=== PATIENT | male | born 1950 | race Hispanic/Latino ===

== ENCOUNTER 2016-11-28 06:10 | Inpatient (IN) | payer MEDICARE ==
[2016-11-28] MEDS ORDERED: Sodium Chloride 0.9% 1,000 ML IV ONE ×2 (06:45→08:00)
--- NOTE | 2016-11-28 06:59 | C.PDOC ---
History Of Present Illness Pt was sent in by his PMD for weight loss and possible pneumonia. Time Seen by Provider: 11/28/16 06:35 Chief Complaint (Nursing): Shortness Of Breath History Per: Patient Onset/Duration Of Symptoms: Days Current Symptoms Are (Timing): Still Present Current Respiratory Medications: None Severity: Moderate Reports Recently: Treated By A Physician Additional History Per: Prior Records Past Medical History Reviewed: Historical Data, Nursing Documentation, Vital Signs Vital Signs: Last Vital Signs Temp 97.4 F L 11/28/16 06:32 Pulse 166 H 11/28/16 06:32 Resp 22 11/28/16 06:51 BP 95/70 L 11/28/16 06:32 Pulse Ox 99 11/28/16 07:00 - Medical History PMH: Asthma Surgical History: No Surg Hx Family History: States: Unknown Family Hx - Social History Hx Tobacco Use: Yes Hx Alcohol Use: No Hx Substance Use: No - Immunization History Hx Tetanus Toxoid Vaccination: No Hx Influenza Vaccination: No Hx Pneumococcal Vaccination: No Review Of Systems Except As Marked, All Systems Reviewed And Found Negative. Constitutional: Negative for: Fever Cardiovascular: Negative for: Chest Pain Respiratory: Negative for: Hemoptysis Gastrointestinal: Negative for: Vomiting, Abdominal Pain Genitourinary: Negative for: Dysuria Musculoskeletal: Negative for: Neck Pain, Back Pain, Leg Pain Skin: Negative for: Rash Neurological: Negative for: Weakness Physical Exam - Physical Exam Appears: In Acute Distress, Chronically Ill Skin: Normal Color, Warm, Dry Head: Atraumatic, Normacephalic Eye(s): bilateral: PERRL, EOMI Oral Mucosa: Dry Neck: Normal ROM, Supple Cardiovascular: Rhythm Irregular (tachycardia) Respiratory: Normal Breath Sounds, No Accessory Muscle Use Gastrointestinal/Abdominal: Soft, No Tenderness Back: No CVA Tenderness Extremity: Normal ROM, No Pedal Edema, No Calf Tenderness Neurological/Psych: Oriented x3, Normal Motor, Normal Sensation ED Course And Treatment ECG: Interpreted By Me, Viewed By Me ECG Rhythm: Atrial Fibrillation (?), Nonspecific Changes ECG Interpretation: Abnormal Rate From EC Pulse Ox Interpretation: Abnormal Interpretation Of Abnormal: Hypoxia on RA. ED EKG Interpretation - Interpreted by ED Physician Interpreted by ED Physician: Yes - TIME Time: 06:42 - Type Type: 12 lead EKG Comparison: Com.w/previous EKG - Rhythm Rhythm: Normal sinus - Rate BPM: 99 - Impression Impression:: Non-specific Disposition - Disposition Disposition Time: 07:00 Condition: GUARDED - Clinical Impression Clinical Impression: Tachycardia Physician Patient Turnover Patient Signed Over To: Harjeet Mills Handoff Comments: to f/up labs and CXR and dispo pt.
[2016-11-28 07:19] LABS: BASO % 0.2 % (0.0-2.0); EOS % 0.2 % (0.0-4.0); INR 1.5; LYMPH # 1.2 K/uL (1.0-4.3); LYMPH % 8.4 % (20.0-40.0); MEAN CELL VOLUME 86.8 fL (80.0-94.0); MEAN CORPUSCULAR HEMOGLOBIN 28.6 pg (27.0-31.0); MEAN PLATELET VOLUME 8.3 fL (7.2-11.7); MONO # 0.8 K/uL (0.0-0.8); MONO % 5.6 % (0.0-10.0); PLATELET COUNT 490 K/uL (130-400); WHITE BLOOD COUNT 14.8 K/uL (4.8-10.8)
[2016-11-28] MEDS ORDERED: Azithromycin 500 MG in Sodium Chloride 0.9% 250 ML IVPB STA (07:58)
[2016-11-28] MEDS ORDERED: Azithromycin 500mg/250ML NS 500 MG/250 ML BAG IVPB ONE (08:09)
[2016-11-28 08:26] LABS: FREE T4 3.24 ng/dL (0.78-2.19)
[2016-11-28 08:34] LABS: CALCIUM 12.1 mg/dl (8.6-10.4); MAGNESIUM 1.6 mg/dL (1.6-2.3)
[2016-11-28 08:40] LABS: THYROID STIMULATING HORMONE < 0.02 mIU/L (0.46-4.68)
[2016-11-28 08:47] LABS: TOTAL CELLS COUNTED 100
[2016-11-28 08:48] LABS: ALKALINE PHOSPHATASE 114 U/L (38-126); ALT/SGPT 23 U/L (21-72); AST/SGOT 30 U/L (17-59); BASOPHIL 1 % (0-2); BILIRUBIN,TOTAL 1.4 mg/dL (0.2-1.3); BLOOD UREA NITROGEN 16 mg/dL (9-20); CARBON DIOXIDE 28 mmol/L (22-30); CHLORIDE 88 mmol/L (98-107); GFR AFRICAN-AMERICAN > 60; GLUCOSE,RANDOM 163 mg/dL (75-110); NEUTROPHIL 89 % (50-75); POTASSIUM 3.3 mmol/L (3.6-5.2); SODIUM 131 mmol/L (132-148); TOTAL PROTEIN 8.9 g/dL (6.3-8.3)
[2016-11-28 08:49] LABS: ALB/GLOB RATIO 0.9 (1.0-2.1)
[2016-11-28 08:50] LABS: LARGE PLATELETS PRESENT
[2016-11-28] MEDS ORDERED: Iodixanol 320 mg/ml 150 ml Bottle IV ONE (08:55)
--- NOTE | 2016-11-28 09:36 | RAD ---
PROCEDURE: CHEST RADIOGRAPH, 1 VIEW Technique: Single view portable semi erect @ 06:50. HISTORY: SOB, tachycardia COMPARISON: None available. FINDINGS: LUNGS: Large right lower lobe infiltrate consistent with acute pneumonia. PLEURA: No pneumothorax or pleural fluid seen. CARDIOVASCULAR: Normal. OSSEOUS STRUCTURES: No significant abnormalities. VISUALIZED UPPER ABDOMEN: Normal. OTHER FINDINGS: None. IMPRESSION: Right lower lobe pneumonia. Please note: No preliminary report/ innterpretation of this examination provided by emergency department personnel.
--- NOTE | 2016-11-28 11:14 | CT ---
CTA chest PE protocol Indication: Shortness of breath and elevated D-dimer Technique: Contiguous axial images were obtained through the chest with intravenous contrast enhancement. Sagittal and coronal reconstructions were generated and reviewed. This CT exam was performed using 1 or more of the falling dose reduction techniques: Automated exposure control, adjustment of the MAA and/or kV according to patient size, and/or use of iterative reconstruction technique. IV Contrast: 100 mL Visipaque Radiation dose (DLP): 348.90 MGy-cm. Comparison: Chest x-ray performed 11/28/16 Findings: Visualized portions of the inferior thyroid gland appear unremarkable. The mediastinal and hilar vascular structures appear within normal limits. The heart appears within normal limits of size. Ascending aortic aneurysm measures approximately 4.3 cm in AP dimension. Extensive emphysematous changes. Extensive mass appears consistent with malignant neoplasm arising from the right lower lobe and invading the mediastinum/right heart border, left atrium and markedly attenuated the right lower lobe pulmonary artery branches as well as invading the right pulmonary vein and branches. Right lower lobe bronchus cut off. No pleural effusion. No pneumothorax. No large central or segmental pulmonary embolus evident. Limited visualized portions of the upper abdomen appear grossly unremarkable. Right posterior 8th rib demonstrates evidence of fracture/ destructive changes presumably due to adjacent neoplasm. Degenerative changes of the spine. Impression: Extensive emphysematous changes. Extensive mass appears consistent with malignant neoplasm arising from the right lower lobe and invading the mediastinum/right heart border, left atrium and markedly attenuated the right lower lobe pulmonary artery branches as well as invading the right pulmonary vein and branches. Right lower lobe bronchus cut off. Right posterior 8th rib demonstrates evidence of fracture/ destructive changes presumably due to adjacent neoplasm.
[2016-11-28] MEDS: Sodium Chloride 0.45% 1,000 ML IV SCH (13:27)
[2016-11-28] MEDS ORDERED: Potassium Chloride 10 mEq ER Tab PO ONE (13:27)
[2016-11-28] MEDS ORDERED: Sodium Chloride 0.45% 1,000 ML IV ONE (13:27)
[2016-11-28] MEDS: Potassium Chloride 10 mEq ER Tab PO SCH (13:27)
--- NOTE | 2016-11-28 15:15 | CP.PCM.CON ---
<Nguyen Mills - Last Filed: 11/28/16 15:43> History of Present Illness - History of Present Illness History of Present Illness: Pulm consult note for Dr. Nicolas: Pulm was consulted for a lung mass found on CT. Patient is a 66 year old male with no past medical history. He reports that he "was sent by primary for pneumonia" and took and bus to get to the ED from his primary care's office today. He reports that he does not any any medical problems and has not been told he has anything wrong with him lungs except pneumonia. He report a 25 pound weight loss within the last 3 months. He states that he has a good appetite. Report normal stool light brown in color. Has never had an endocopy or colonoscopy. He has a long history of smoking but denies cough, chest pain, or shortness of breath. PMHx - denies Meds - men's multivitamin Surg - none Allergies - NKDA Famhx - unknown, no fam hx of cancer Social - heavy smoker 10 cigarettes daily for 40+ years, denies alcohol or drug use. 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 Vanessa Austin Review of Systems - Constitutional Constitutional: absent: Chills, Fever - Cardiovascular Cardiovascular: absent: Chest Pain, Chest Pain at Rest, Palpitations - Respiratory Respiratory: absent: Cough, Dyspnea, Dyspnea on Exertion, Wheezing, Excessive Mucous Production - Gastrointestinal Gastrointestinal: absent: Abdominal Pain, Nausea, Vomiting - Genitourinary Genitourinary: absent: Change in Urinary Stream, Difficulty Urinating Past Patient History - Past Social History Smoking Status: Heavy Smoker > 10 Cigarettes Daily - PULMONARY Hx Asthma: Yes - PSYCHIATRIC Hx Substance Use: No - SURGICAL HISTORY Hx Surgeries: No - ANESTHESIA Hx Anesthesia: No Meds Allergies/Adverse Reactions: Allergies Allergy/AdvReac Type Severity Reaction Status Date / Time No Known Allergies Allergy Verified 11/28/16 06:40 - Medications Medications: Current Medications Ceftriaxone Sodium 1 gm/ (Sodium Chloride) 100 mls @ 100 mls/hr IVPB DAILY [facility] Azithromycin 500 mg/ Sodium (Chloride) 250 mls @ 250 mls/hr IVPB DAILY [facility] Sodium Chloride (Sodium Chloride 0.45%) 1,000 mls @ 60 mls/hr IV .[id number] [facility] Last Admin: 11/28/16 13:27 Dose: 60 mls/hr Potassium Chloride (Klor-Con 10) 10 meq PO DAILY@0800 [facility] Last Admin: 11/28/16 13:27 Dose: 10 meq Physical Exam - Constitutional Appears: Non-toxic, No Acute Distress, Cachectic - Head Exam Head Exam: ATRAUMATIC, NORMAL INSPECTION - ENT Exam ENT Exam: Mucous Membranes Moist - Respiratory Exam Respiratory Exam: Decreased Breath Sounds, Wheezes, NORMAL BREATHING PATTERN. absent: Accessory Muscle Use, Clear to Auscultation Bilateral, Respiratory Distress Additional comments: Barrel chested - Cardiovascular Exam Cardiovascular Exam: Irregular Rhythm, +S1, +S2 - GI/Abdominal Exam GI & Abdominal Exam: Normal Bowel Sounds, Soft. absent: Distended, Firm, Guarding, Tenderness - Extremities Exam Additional comments: digital clubbing not cyanotic - Neurological Exam Neurological exam: Alert, Oriented x3 - Psychiatric Exam Psychiatric exam: Normal Affect, Normal Mood - Skin Skin Exam: Dry, Intact, Normal Color, Warm Results - Vital Signs Recent Vital Signs: Last Vital Signs Temp 97.8 F 11/28/16 14:55 Pulse 78 11/28/16 14:55 Resp 20 11/28/16 14:55 BP 114/72 11/28/16 14:55 Pulse Ox 98 11/28/16 14:55 - Labs Result Diagrams: 11/28/16 06:54 11/28/16 06:54 Labs: Laboratory Results - last 24 hr 11/28/16 11/28/16 11/28/16 06:54 06:54 06:54 WBC 14.8 H RBC 4.15 L Hgb 11.9 L Hct 36.0 MCV 86.8 MCH 28.6 MCHC 33.0 RDW 19.0 H Plt Count 490 H MPV 8.3 Neut % (Auto) 85.6 H Lymph % (Auto) 8.4 L [place] % (Auto) 5.6 Eos % (Auto) 0.2 Baso % (Auto) 0.2 Neut # 12.6 H Lymph # 1.2 [place] # 0.8 Eos # 0.0 Baso # 0.0 Neutrophils % (Manual) 89 H Lymphocytes % (Manual) 8 L Monocytes % (Manual) 2 Basophils % (Manual) 1 Platelet Estimate Slightly increased H Large Platelets Present Poikilocytosis (manual Slight Anisocytosis (manual) Slight PT 16.5 H INR 1.5 APTT 30 D-Dimer, Quantitative 722 H Sodium 131 L Potassium 3.3 L Chloride 88 L Carbon Dioxide 28 Anion Gap 18 BUN 16 Creatinine 0.7 L Est GFR ( Amer) > 60 Est GFR (Non-Af Amer) > 60 Random Glucose 163 H Lactic Acid Calcium 12.1 H Magnesium 1.6 Total Bilirubin 1.4 H AST 30 ALT 23 Alkaline Phosphatase 114 Troponin I < 0.0120 NT-Pro-B Natriuret Pep 1720 H Total Protein 8.9 H Albumin 4.1 Globulin 4.8 H Albumin/Globulin Ratio 0.9 L Free T4 TSH 3rd Generation 11/28/16 11/28/16 06:54 10:05 WBC RBC Hgb Hct MCV MCH MCHC RDW Plt Count MPV Neut % (Auto) Lymph % (Auto) [place] % (Auto) Eos % (Auto) Baso % (Auto) Neut # Lymph # [place] # Eos # Baso # Neutrophils % (Manual) Lymphocytes % (Manual) Monocytes % (Manual) Basophils % (Manual) Platelet Estimate Large Platelets Poikilocytosis (manual Anisocytosis (manual) PT INR APTT D-Dimer, Quantitative Sodium Potassium Chloride Carbon Dioxide Anion Gap BUN Creatinine Est GFR ( Amer) Est GFR (Non-Af Amer) Random Glucose Lactic Acid 1.2 Calcium Magnesium Total Bilirubin AST ALT Alkaline Phosphatase Troponin I NT-Pro-B Natriuret Pep Total Protein Albumin Globulin Albumin/Globulin Ratio Free T4 3.24 H TSH 3rd Generation < 0.02 L Assessment & Plan (1) Lung mass Status: Acute Comment: Suggest CT guided biopsy for lung mass eval. Heme/onc consult (2) COPD (chronic obstructive pulmonary disease) Status: Acute Comment: CT - suggesting of extensive emphysema. Will start Advai 250/50 and Spirivia. Azithromycin and Ceftriazone for pneumonia coverage. No need for steroids as the patient does not appear to be having an acute exacerbation. <Ramez Nicolas - Last Filed: 11/29/16 15:00> Meds - Medications Medications: Current Medications Albuterol/Ipratropium (Duoneb 3 Mg/0.5 Mg (3 Ml) Ud) 3 ml INH RQ6 [facility] Ceftriaxone Sodium 1 gm/ (Sodium Chloride) 100 mls @ 100 mls/hr IVPB DAILY [facility] Azithromycin 500 mg/ Sodium (Chloride) 250 mls @ 250 mls/hr IVPB DAILY [facility] Sodium Chloride (Sodium Chloride 0.45%) 1,000 mls @ 60 mls/hr IV .[id number] [facility] Last Admin: 11/28/16 13:27 Dose: 60 mls/hr Potassium Chloride (Klor-Con 10) 10 meq PO DAILY@0800 [facility] Last Admin: 11/28/16 13:27 Dose: 10 meq Fluticasone/Salmeterol (Advair Diskus 250/50) 1 puff INH RQ12 [facility] Tiotropium [place] (Spiriva) 18 mcg INH RQ24 [facility] Results - Vital Signs Recent Vital Signs: Last Vital Signs Temp 98.0 F 11/28/16 16:10 Pulse 81 11/28/16 16:27 Resp 20 11/28/16 16:10 BP 128/73 11/28/16 16:10 Pulse Ox 92 L 11/28/16 16:10 - Labs Result Diagrams: 11/29/16 08:22 11/29/16 08:22 Labs: Laboratory Results - last 24 hr 11/28/16 11/28/16 11/28/16 06:54 06:54 06:54 WBC 14.8 H RBC 4.15 L Hgb 11.9 L Hct 36.0 MCV 86.8 MCH 28.6 MCHC 33.0 RDW 19.0 H Plt Count 490 H MPV 8.3 Neut % (Auto) 85.6 H Lymph % (Auto) 8.4 L [place] % (Auto) 5.6 Eos % (Auto) 0.2 Baso % (Auto) 0.2 Neut # 12.6 H Lymph # 1.2 [place] # 0.8 Eos # 0.0 Baso # 0.0 Neutrophils % (Manual) 89 H Lymphocytes % (Manual) 8 L Monocytes % (Manual) 2 Basophils % (Manual) 1 Platelet Estimate Slightly increased H Large Platelets Present Poikilocytosis (manual Slight Anisocytosis (manual) Slight PT 16.5 H INR 1.5 APTT 30 D-Dimer, Quantitative 722 H Sodium 131 L Potassium 3.3 L Chloride 88 L Carbon Dioxide 28 Anion Gap 18 BUN 16 Creatinine 0.7 L Est GFR ( Amer) > 60 Est GFR (Non-Af Amer) > 60 Random Glucose 163 H Lactic Acid Calcium 12.1 H Magnesium 1.6 Total Bilirubin 1.4 H AST 30 ALT 23 Alkaline Phosphatase 114 Troponin I < 0.0120 NT-Pro-B Natriuret Pep 1720 H Total Protein 8.9 H Albumin 4.1 Globulin 4.8 H Albumin/Globulin Ratio 0.9 L Free T4 TSH 3rd Generation 11/28/16 11/28/16 06:54 10:05 WBC RBC Hgb Hct MCV MCH MCHC RDW Plt Count MPV Neut % (Auto) Lymph % (Auto) [place] % (Auto) Eos % (Auto) Baso % (Auto) Neut # Lymph # [place] # Eos # Baso # Neutrophils % (Manual) Lymphocytes % (Manual) Monocytes % (Manual) Basophils % (Manual) Platelet Estimate Large Platelets Poikilocytosis (manual Anisocytosis (manual) PT INR APTT D-Dimer, Quantitative Sodium Potassium Chloride Carbon Dioxide Anion Gap BUN Creatinine Est GFR ( Amer) Est GFR (Non-Af Amer) Random Glucose Lactic Acid 1.2 Calcium Magnesium Total Bilirubin AST ALT Alkaline Phosphatase Troponin I NT-Pro-B Natriuret Pep Total Protein Albumin Globulin Albumin/Globulin Ratio Free T4 3.24 H TSH 3rd Generation < 0.02 L Attending/Attestation - Attestation I have personally seen and examined this patient.: Yes I have fully participated in the care of the patient.: Yes I have reviewed all pertinent clinical information: Yes Notes (Text): 11/29/16 15:00 Continue treatment for COPD Biopsy of lung mass Patient in denial
--- NOTE | 2016-11-28 17:24 | CARD ---
APPROVED REPORT EKG Measurement Heart [id number] <Conclusion> Atrial fibrillation with rapid ventricular response Nonspecific ST abnormality Abnormal ECG
--- NOTE | 2016-11-28 17:24 | CARD ---
APPROVED REPORT EKG Measurement Heart [id number] <Conclusion> Atrial fibrillation with rapid ventricular response Nonspecific ST abnormality Abnormal ECG
[2016-11-28] MEDS: Fluticasone-Salmeterol 250-50mcg Diskus INH SCH (19:51)
[2016-11-28] MEDS: Albuterol-Ipratrop 3 mg / 0.5 (3 ml) UD INH SCH (19:52)
[2016-11-29] MEDS: Albuterol-Ipratrop 3 mg / 0.5 (3 ml) UD INH SCH ×4 (01:24→19:07)
[2016-11-29] MEDS: Sodium Chloride 0.45% 1,000 ML IV SCH (06:31)
[2016-11-29] MEDS: Fluticasone-Salmeterol 250-50mcg Diskus INH SCH ×2 (07:28→19:06)
[2016-11-29] MEDS: Tiotropium 18 mcg Cap For Inhalation INH SCH (07:30)
[2016-11-29 08:38] LABS: BASO % 0.2 % (0.0-2.0); EOS % 0.2 % (0.0-4.0); HEMATOCRIT 28.6 % (35.0-51.0); LYMPH # 1.1 K/uL (1.0-4.3); LYMPH % 10.4 % (20.0-40.0); MEAN CELL VOLUME 86.1 fL (80.0-94.0); MEAN CORPUSCULAR HGB CONC 33.7 g/dL (33.0-37.0); MEAN PLATELET VOLUME 8.2 fL (7.2-11.7); MONO # 0.9 K/uL (0.0-0.8); MONO % 8.1 % (0.0-10.0); RED CELL DISTRIBUTION WIDTH 18.8 % (11.5-14.5); WHITE BLOOD COUNT 10.8 K/uL (4.8-10.8)
[2016-11-29] MEDS: Potassium Chloride 10 mEq ER Tab PO SCH (09:00)
[2016-11-29 09:03] LABS: CHLORIDE 93 mmol/L (98-107); POTASSIUM 3.3 mmol/L (3.6-5.2); SODIUM 132 mmol/L (132-148)
[2016-11-29 09:06] LABS: BLOOD UREA NITROGEN 10 mg/dL (9-20); CALCIUM 10.2 mg/dl (8.6-10.4); CARBON DIOXIDE 30 mmol/L (22-30); GFR AFRICAN-AMERICAN > 60; GLUCOSE,RANDOM 95 mg/dL (75-110)
[2016-11-29] MEDS: Azithromycin 500 MG in Sodium Chloride 0.9% 250 ML IVPB SCH (10:00)
--- NOTE | 2016-11-29 11:57 | CP.PCM.PN ---
Subjective - Date & Time of Evaluation Date of Evaluation: 11/29/16 Time of Evaluation: 11:54 - Subjective Subjective: PT FEELS BETTER. WBC'S WNL. PUL EVAL NOTED. FOR CT GUIDED LUNG BIOPSY. AFEBRILE. Objective - Vital Signs/Intake and Output Vital Signs (last 24 hours): Temp Pulse Resp BP Pulse Ox 98.3 F 81 20 133/67 98 11/28/16 23:00 11/29/16 03:53 11/28/16 23:00 11/28/16 23:00 11/28/16 23:00 Intake and Output: 11/29/16 11/29/16 06:59 18:59 Intake Total 800 Balance 800 - Medications Medications: Current Medications Albuterol/Ipratropium (Duoneb 3 Mg/0.5 Mg (3 Ml) Ud) 3 ml INH RQ6 [facility] Last Admin: 11/29/16 07:30 Dose: Not Given Heparin Sodium (Porcine) (Heparin) 5,000 units SC Q12 [facility] Last Admin: 11/29/16 11:00 Dose: 5,000 units Ceftriaxone Sodium 1 gm/ (Sodium Chloride) 100 mls @ 100 mls/hr IVPB DAILY [facility] Azithromycin 500 mg/ Sodium (Chloride) 250 mls @ 250 mls/hr IVPB DAILY [facility] Sodium Chloride (Sodium Chloride 0.45%) 1,000 mls @ 60 mls/hr IV .[id number] [facility] Last Admin: 11/29/16 06:31 Dose: 60 mls/hr Potassium Chloride (Klor-Con 10) 10 meq PO DAILY@0800 [facility] Last Admin: 11/29/16 09:00 Dose: 10 meq Fluticasone/Salmeterol (Advair Diskus 250/50) 1 puff INH RQ12 [facility] Last Admin: 11/29/16 07:28 Dose: Not Given Tiotropium [place] (Spiriva) 18 mcg INH RQ24 [facility] Last Admin: 11/29/16 07:30 Dose: Not Given - Labs Labs: 11/29/16 08:22 11/29/16 08:22 PT 16.5 SECONDS (9.7-12.2) H 11/28/16 06:54 INR 1.5 11/28/16 06:54 APTT 30 SECONDS (21-34) 11/28/16 06:54 - Constitutional Appears: No Acute Distress, Chronically Ill - Eye Exam Eye Exam: Normal appearance, PERRL - ENT Exam ENT Exam: Mucous Membranes Moist, Normal Exam - Respiratory Exam Respiratory Exam: Decreased Breath Sounds, Wheezes, NORMAL BREATHING PATTERN - Cardiovascular Exam Cardiovascular Exam: REGULAR RHYTHM, +S1, +S2 - Extremities Exam Extremities Exam: Full ROM, Normal Capillary Refill, Normal Inspection. absent : Joint Swelling, Pedal Edema - Back Exam Back Exam: NORMAL INSPECTION - Neurological Exam Neurological Exam: Alert, Awake, CN II-XII Intact, Normal Gait, Oriented x3 - Psychiatric Exam Psychiatric exam: Normal Affect, Normal Mood Assessment and Plan - Assessment and Plan (Free Text) Assessment: LUNG MASS. COPD. PNEUMONIA. Plan: FOR BIOPSY. CT RESP AND ID TREATMENT.
--- NOTE | 2016-11-29 12:55 | CP.PCM.PN ---
<Nguyen Mills - Last Filed: 11/29/16 12:46> Subjective - Date & Time of Evaluation Date of Evaluation: 11/29/16 Time of Evaluation: 08:00 - Subjective Subjective: Pulm progress note for Dr. Nicolas: Patient seen and examined at bedside this morning. He stated he wanted to go home. He denied all complaints such as chest pain, SOB, or cough and stated he has no medical problems. When he was told about the mass in the lung and the COPD due to smoking he repeated that "nothing is wrong with me". Objective - Vital Signs/Intake and Output Vital Signs (last 24 hours): Temp Pulse Resp BP Pulse Ox 98.3 F 81 20 133/67 98 11/28/16 23:00 11/29/16 03:53 11/28/16 23:00 11/28/16 23:00 11/28/16 23:00 Intake and Output: 11/29/16 11/29/16 06:59 18:59 Intake Total 800 Balance 800 - Medications Medications: Current Medications Albuterol/Ipratropium (Duoneb 3 Mg/0.5 Mg (3 Ml) Ud) 3 ml INH RQ6 [facility] Last Admin: 11/29/16 07:30 Dose: Not Given Heparin Sodium (Porcine) (Heparin) 5,000 units SC Q12 [facility] Last Admin: 11/29/16 11:00 Dose: 5,000 units Ceftriaxone Sodium 1 gm/ (Sodium Chloride) 100 mls @ 100 mls/hr IVPB DAILY [facility] Last Admin: 11/29/16 09:05 Dose: 100 mls/hr Azithromycin 500 mg/ Sodium (Chloride) 250 mls @ 250 mls/hr IVPB DAILY [facility] Last Admin: 11/29/16 10:00 Dose: 250 mls/hr Sodium Chloride (Sodium Chloride 0.45%) 1,000 mls @ 60 mls/hr IV .[id number] [facility] Last Admin: 11/29/16 06:31 Dose: 60 mls/hr Potassium Chloride (Klor-Con 10) 10 meq PO DAILY@0800 [facility] Last Admin: 11/29/16 09:00 Dose: 10 meq Fluticasone/Salmeterol (Advair Diskus 250/50) 1 puff INH RQ12 [facility] Last Admin: 11/29/16 07:28 Dose: Not Given Tiotropium [place] (Spiriva) 18 mcg INH RQ24 [facility] Last Admin: 11/29/16 07:30 Dose: Not Given - Labs Labs: 11/29/16 08:22 11/29/16 08:22 PT 16.5 SECONDS (9.7-12.2) H 11/28/16 06:54 INR 1.5 11/28/16 06:54 APTT 30 SECONDS (21-34) 11/28/16 06:54 - Constitutional Appears: Non-toxic, No Acute Distress, Cachectic - Head Exam Head Exam: ATRAUMATIC, NORMAL INSPECTION - Respiratory Exam Respiratory Exam: Decreased Breath Sounds, NORMAL BREATHING PATTERN. absent: Accessory Muscle Use, Rales, Respiratory Distress Additional comments: barrel chest - Cardiovascular Exam Cardiovascular Exam: Irregular Rhythm, +S1, +S2 - GI/Abdominal Exam GI & Abdominal Exam: Soft, Normal Bowel Sounds. absent: Distended, Firm, Guarding, Tenderness - Extremities Exam Additional comments: clubbing on fingers - Neurological Exam Neurological Exam: Alert, Awake, Oriented x3 - Psychiatric Exam Psychiatric exam: Normal Affect, Normal Mood - Skin Skin Exam: Dry, Intact, Normal Color, Warm Assessment and Plan (1) Lung mass Assessment & Plan: Suggest CT guided biopsy for lung mass eval. Heme/onc consult Status: Acute (2) COPD (chronic obstructive pulmonary disease) Assessment & Plan: CT - suggesting of extensive emphysema. Advair 250/50 and Spirivia - Patient is refusing the medications Duonebs Q6 [facility] Azithromycin and Ceftriaxone for pneumonia coverage. No need for steroids as the patient does not appear to be having an acute exacerbation. Status: Acute <Ramez Nicolas S - Last Filed: 11/29/16 15:01> Objective - Vital Signs/Intake and Output Vital Signs (last 24 hours): Temp Pulse Resp BP Pulse Ox 98.3 F 81 20 133/67 98 11/28/16 23:00 11/29/16 03:53 11/28/16 23:00 11/28/16 23:00 11/28/16 23:00 Intake and Output: 11/29/16 11/29/16 06:59 18:59 Intake Total 800 Balance 800 - Medications Medications: Current Medications Albuterol/Ipratropium (Duoneb 3 Mg/0.5 Mg (3 Ml) Ud) 3 ml INH RQ6 [facility] Last Admin: 11/29/16 13:40 Dose: Not Given Heparin Sodium (Porcine) (Heparin) 5,000 units SC Q12 [facility] Last Admin: 11/29/16 11:00 Dose: 5,000 units Ceftriaxone Sodium 1 gm/ (Sodium Chloride) 100 mls @ 100 mls/hr IVPB DAILY [facility] Last Admin: 11/29/16 09:05 Dose: 100 mls/hr Azithromycin 500 mg/ Sodium (Chloride) 250 mls @ 250 mls/hr IVPB DAILY [facility] Last Admin: 11/29/16 10:00 Dose: 250 mls/hr Sodium Chloride (Sodium Chloride 0.45%) 1,000 mls @ 60 mls/hr IV .[id number] [facility] Last Admin: 11/29/16 06:31 Dose: 60 mls/hr Potassium Chloride (Klor-Con 10) 10 meq PO DAILY@0800 [facility] Last Admin: 11/29/16 09:00 Dose: 10 meq Fluticasone/Salmeterol (Advair Diskus 250/50) 1 puff INH RQ12 [facility] Last Admin: 11/29/16 07:28 Dose: Not Given Tiotropium [place] (Spiriva) 18 mcg INH RQ24 [facility] Last Admin: 11/29/16 07:30 Dose: Not Given - Labs Labs: 11/29/16 08:22 11/29/16 08:22 PT 16.5 SECONDS (9.7-12.2) H 11/28/16 06:54 INR 1.5 11/28/16 06:54 APTT 30 SECONDS (21-34) 11/28/16 06:54 Attending/Attestation - Attestation I have personally seen and examined this patient.: Yes I have fully participated in the care of the patient.: Yes I have reviewed all pertinent clinical information, including history, physical exam and plan: Yes Notes (Text): 11/29/16 15:01 Patient seen and examined. Patient is a alert and oriented Patient refusing lung biopsy and treatment for COPD
--- NOTE | 2016-11-29 13:29 | HP ---
HISTORY OF PRESENT ILLNESS: This is a 66-year-old white male came to my office for the last 2 to 3 weeks. First time when he came to the office, the patient has history of dyspnea on exertion and cough. Loss of appetite. The patient also has history of weight loss. On 11/10/2016, the patient's weight was 128 pounds. The patient also has lab work and chest x-ray done, which shows possible right-sided infiltrate and density with enlarged mediastinum. The patient was given antibiotic and was advised to get admission for further evaluation. The patient refused that time. The patient came to the office yesterday with persistent weight loss and the patient weight was 114 pounds. Now, the patient agreed to go to emergency room for checkup. In the emergency room, the patient has CT scan of the chest done, which shows right lower lung mass and most likely cancer. The patient also has infiltrate. The patient has infiltrate in pulmonary vein and around the heart. The patient denies having any chest pain. No history of fever. PAST MEDICAL HISTORY: History of COPD. No history of hypertension, diabetes, or myocardial infarction. MEDICATIONS: The patient is noncompliant to the meds. FAMILY HISTORY: No known inherited disease. SOCIAL HISTORY: The patient used to smoke and claims he stopped smoking 3 weeks ago. Denies alcoholism or substance abuse. ALLERGIES: NO KNOWN ALLERGY. PHYSICAL EXAMINATION: GENERAL: This is a 66-year-old white male, awake, mildly tachypneic and dyspneic. Cough present. Awake and alert. VITAL SIGNS: Temperature 97.4, pulse 166 per minute and showing atrial fibrillation with rapid ventricular rate. Respirations 22, blood pressure 95/70 mmHg, pulse ox 99% on room air. HEENT: Normal. JVP is flat. Carotid, no bruits. LUNGS: No rales, no wheezing. Poor air entry. HEART: S1 and S2 normal. Tachycardic, irregular rhythm. No gallop, no murmur. ABDOMEN: Soft, nontender. No organomegaly. SOCIAL INSURANCE ADVISER: No focal neurological deficits. No edema of the legs. The patient appears cachectic and pale. LABORATORY DATA: On admission, CAT scan is positive for right side lung mass. Infiltrate and pneumonia. Leukocytosis is present. Mild anemia is present. EKG; atrial fibrillation with rapid ventricular, which converted to normal sinus rhythm with Cardizem treatment. DIAGNOSES: Lung tumor. Pneumonia. Leukocytosis. Atrial fibrillation with rapid ventricular rate. Chronic obstructive pulmonary disease. PLAN: The patient will be admitted to telemetry bed. We will get Pulmonary, Infectious, and Hematology and Oncology consultations. IV antibiotics. Other workup as needed. Mauricio Austin MD
--- NOTE | 2016-11-29 17:37 | CP.PCM.CON ---
History of Present Illness - History of Present Illness History of Present Illness: 66 year old male with no past medical history was sent by primary for pneumonia ". He report a 25 pound weight loss within the last 3 months. He states that he has a good appetite. CXR reported + for mass Infiltrates omn cxr IV antibiotics ordered PMHx - denies Meds - men's multivitamin Surg - none Allergies - NKDA Famhx - unknown, no fam hx of cancer Social - heavy smoker 10 cigarettes daily for 40+ years, denies alcohol or drug use. 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 absent: Fever - EENT Eyes: absent: As Per HPI, Blind Spots, Blurred Vision, Change in Vision, Decreased Night Vision, Diplopia, Discharge, Dry Eye, Exophthalmos, Floaters, Irritation, Itchy Eyes, Loss of Peripheral Vision, Pain, Photophobia, Requires Corrective Lenses, Sees Flashes, Spots in Vision, Tunnel Vision, Other Visual Disturbances, Loss of Vision, Other Ears: absent: As Per HPI, Decreased Hearing, Ear Discharge, Ear Pain, Tinnitus, Abnormal Hearing, Disequilibrium, Dizziness, Other Nose/Mouth/Throat: absent: As Per HPI, Epistaxis, Nasal Congestion, Nasal Discharge, Nasal Obstruction, Nasal Trauma, Nose Pain, Post Nasal Drip, Sinus Pain, Sinus Pressure, Bleeding Gums, Change in Voice, Dental Pain, Dry Mouth, Dysphagia, Halitosis, Hoarsness, Lip Swelling, Mouth Lesions, Mouth Pain, Odynophagia, Sore Throat, Throat Swelling, Tongue Swelling, Facial Pain, Neck Pain, Neck Mass, Other - Cardiovascular Cardiovascular: absent: As Per HPI, Acrocyanosis, Chest Pain, Chest Pain at Rest , Chest Pain with Activity, Claudication, Diaphoresis, Dyspnea, Dyspnea on Exertion, Edema, Irregular Heart Rhythm, Pain Radiating to Arm/Neck/Jaw, Leg Edema, Leg Ulcers, Lightheadedness, Orthopnea, Palpitations, Paroxysmal Nocturnal Dyspnea, Pedal Edema, Radiating Pain, Rapid Heart Rate, Slow Heart Rate, Syncope, Other - Respiratory Respiratory: As Per HPI, Cough, Dyspnea. absent: Hemoptysis - Gastrointestinal Gastrointestinal: absent: As Per HPI, Abdominal Pain, Belching, Bloating, Change in Bowel Habits, Change in Stool Character, Coffee Ground Emesis, Constipation, Cramping, Diarrhea, Dyspepsia, Dysphagia, Early Satiety, Excessive Flatus, Fecal Incontinence, Heartburn, Hematemesis, Hematochezia, Loose Stools, Melena, Nausea, Odynophagia, Temesmus, Vomiting, Other - Genitourinary Genitourinary: absent: As Per HPI, Change in Urinary Stream, Difficulty Urinating, Dysuria, Flank Pain, Hematuria, Pyuria, Nocturia, Urinary Incontinence, Urinary Frequency, Urinary Hesitance, Urinary Urgency, Voiding Freq/Small Amts, Freq UTI, Hx Renal/Bladder Calculi, Hx /Renal Surgery, Bladder Distension, Other - Musculoskeletal Musculoskeletal: Deformity - Integumentary Integumentary: As Per HPI, Dry Skin - Neurological Neurological: absent: As Per HPI, Abnormal Gait, Abnormal Hearing, Abnormal Movements, Abnormal Speech, Behavioral Changes, Burning Sensations, Confusion, Convulsions, Disequilibrium, Dizziness, Numbness, Focal Weakness, Frequent Falls , Headaches, Lack of Coordination, Loss of Vision, Memory Loss, Paresthesias, Radicular Pain, Restless Legs, Sensory Deficit, Syncope, Tingling, Tremor, Vertigo, Weakness, Other Visual Disturbances, Other - Psychiatric Psychiatric: absent: As Per HPI, Abnormal Sleep Pattern, Anhedonia, Anxiety, Auditory Hallucinations, Behavioral Changes, Change in Appetite, Change in Libido, Confusion, Depression, Difficulty Concentrating, Hallucinations, Homicidal Ideation, Hopelessness, Irritability, Memory Loss, Mood Swings, Panic Attacks, Paranoia, Suicidal Ideation, Visual Hallucinations, Tactile Hallucinations, Other - Endocrine Endocrine: absent: As Per HPI, Change in Body Appearance, Change in Libido, Cold Intolorance, Deepening of Voice, Excessive Sweating, Fatigue, Flushing, Heat Intolorance, Increase in Ring/Shoe/Hat Size, Palpitations, Polydipsia, Polyphagia, Polyuria, Other - Hematologic/Lymphatic Hematologic: absent: As Per HPI, Easy Bleeding, Easy Bruising, Lymphadenopathy, Other Past Patient History - Past Medical History & Family History Past Medical History?: Yes - Past Social History Smoking Status: Light Smoker < 10 Cigarettes Daily - CARDIAC Hx Cardiac Disorders: No - PULMONARY Hx Respiratory Disorders: Yes Hx Asthma: Yes - NEUROLOGICAL Hx Neurological Disorder: No - HEENT Hx HEENT Problems: No - RENAL Hx Chronic Kidney Disease: No - ENDOCRINE/METABOLIC Hx Endocrine Disorders: No - HEMATOLOGICAL/ONCOLOGICAL Hx Blood Disorders: No - MUSCULOSKELETAL/RHEUMATOLOGICAL Hx Musculoskeletal Disorders: No - GASTROINTESTINAL Hx Gastrointestinal Disorders: No - GENITOURINARY/GYNECOLOGICAL Hx Genitourinary Disorders: No - PSYCHIATRIC Hx Psychophysiologic Disorder: No Hx Substance Use: No - SURGICAL HISTORY Hx Surgeries: No - ANESTHESIA Hx Anesthesia: No Meds Allergies/Adverse Reactions: Allergies Allergy/AdvReac Type Severity Reaction Status Date / Time No Known Allergies Allergy Verified 11/28/16 06:40 - Medications Medications: Current Medications Albuterol/Ipratropium (Duoneb 3 Mg/0.5 Mg (3 Ml) Ud) 3 ml INH RQ6 [facility] Last Admin: 11/29/16 13:40 Dose: Not Given Heparin Sodium (Porcine) (Heparin) 5,000 units SC Q12 [facility] Last Admin: 11/29/16 11:00 Dose: 5,000 units Ceftriaxone Sodium 1 gm/ (Sodium Chloride) 100 mls @ 100 mls/hr IVPB DAILY [facility] Last Admin: 11/29/16 09:05 Dose: 100 mls/hr Azithromycin 500 mg/ Sodium (Chloride) 250 mls @ 250 mls/hr IVPB DAILY [facility] Last Admin: 11/29/16 10:00 Dose: 250 mls/hr Sodium Chloride (Sodium Chloride 0.45%) 1,000 mls @ 60 mls/hr IV .[id number] [facility] Last Admin: 11/29/16 06:31 Dose: 60 mls/hr Potassium Chloride (Klor-Con 10) 10 meq PO DAILY@0800 [facility] Last Admin: 11/29/16 09:00 Dose: 10 meq Fluticasone/Salmeterol (Advair Diskus 250/50) 1 puff INH RQ12 [facility] Last Admin: 11/29/16 07:28 Dose: Not Given Tiotropium [employer] (Spiriva) 18 mcg INH RQ24 [facility] Last Admin: 11/29/16 07:30 Dose: Not Given Physical Exam - Constitutional Appears: Non-toxic, Cachectic, Chronically Ill - Head Exam Head Exam: NORMOCEPHALIC - Eye Exam Eye Exam: PERRL. absent: Scleral icterus - ENT Exam ENT Exam: Mucous Membranes Dry, Normal External Ear Exam - Neck Exam Neck exam: Negative for: Lymphadenopathy - Respiratory Exam Respiratory Exam: Decreased Breath Sounds, Prolonged Expiratory Phase, Rhonchi - Cardiovascular Exam Cardiovascular Exam: REGULAR RHYTHM, +S1, +S2 - GI/Abdominal Exam GI & Abdominal Exam: Diminished Bowel Sounds, Soft. absent: Tenderness - Rectal Exam Rectal Exam: Deferred - Exam Exam: NORMAL INSPECTION - Extremities Exam Extremities exam: Positive for: pedal pulses present. Negative for: calf tenderness, pedal edema, tenderness Additional comments: +++ clubbing - Back Exam Back exam: absent: CVA tenderness (L), CVA tenderness (R) - Neurological Exam Neurological exam: Alert, CN II-XII Intact, Oriented x3, Reflexes Normal - Psychiatric Exam Psychiatric exam: Depressed - Skin Skin Exam: Dry Results - Vital Signs Recent Vital Signs: Last Vital Signs Temp 98.3 F 11/28/16 23:00 Pulse 81 11/29/16 03:53 Resp 20 11/28/16 23:00 BP 133/67 11/28/16 23:00 Pulse Ox 98 11/28/16 23:00 - Labs Result Diagrams: 11/29/16 08:22 11/29/16 08:22 Labs: Laboratory Results - last 24 hr 11/29/16 11/29/16 08:22 08:22 WBC 10.8 RBC 3.32 L Hgb 9.6 L D Hct 28.6 L MCV 86.1 MCH 29.0 MCHC 33.7 RDW 18.8 H Plt Count 284 D MPV 8.2 Neut % (Auto) 81.1 H Lymph % (Auto) 10.4 L Stokes % (Auto) 8.1 Eos % (Auto) 0.2 Baso % (Auto) 0.2 Neut # 8.7 H Lymph # 1.1 Stokes # 0.9 H Eos # 0.0 Baso # 0.0 Sodium 132 Potassium 3.3 L Chloride 93 L Carbon Dioxide 30 Anion Gap 12 BUN 10 Creatinine 0.4 L Est GFR ( Amer) > 60 Est GFR (Non-Af Amer) > 60 Random Glucose 95 Calcium 10.2 Assessment & Plan (1) COPD (chronic obstructive pulmonary disease) Status: Acute (2) Lung mass Status: Acute (3) Tachycardia Status: Acute - Assessment and Plan (Free Text) Assessment: r/o infection/ malignancy or both
--- NOTE | 2016-11-29 23:50 | CARD ---
APPROVED REPORT EKG Measurement Heart [id number] <Conclusion> Atrial fibrillation with rapid ventricular response Abnormal ECG
--- NOTE | 2016-11-29 23:50 | CARD ---
APPROVED REPORT EKG Measurement Heart [id number] <Conclusion> Sinus rhythm with marked sinus arrhythmia Otherwise normal ECG
[2016-11-30] MEDS: Albuterol-Ipratrop 3 mg / 0.5 (3 ml) UD INH SCH ×4 (01:11→19:23)
[2016-11-30] MEDS: Sodium Chloride 0.45% 1,000 ML IV SCH (05:01)
[2016-11-30] MEDS: Potassium Chloride 10 mEq ER Tab PO SCH (09:04)
--- NOTE | 2016-11-30 09:55 | CP.PCM.PN ---
<Korina Lopez - Last Filed: 11/30/16 09:51> Subjective - Date & Time of Evaluation Date of Evaluation: 11/30/16 Time of Evaluation: 09:00 - Subjective Subjective: Pulmonology Note for Dr. Nicolas's Service Patient was seen and examined at bedside. He reports he feels well. No acute complaints. Patient reports he refuses biopsy but has signed anesthesia consent. Patient states there is nothing wrong with him. Denied fever, chills, headache, chest pain, SOB, cough abdominal pain, n/v/d/c, or urinary symptoms. Objective - Vital Signs/Intake and Output Vital Signs (last 24 hours): Temp Pulse Resp BP Pulse Ox 98.0 F 78 20 144/81 95 11/30/16 07:15 11/30/16 07:15 11/30/16 07:15 11/30/16 07:15 11/30/16 07:15 Intake and Output: 11/30/16 11/30/16 06:59 18:59 Intake Total 400 Output Total 300 Balance 100 - Medications Medications: Current Medications Albuterol/Ipratropium (Duoneb 3 Mg/0.5 Mg (3 Ml) Ud) 3 ml INH RQ6 [facility] Last Admin: 11/30/16 07:32 Dose: Not Given Heparin Sodium (Porcine) (Heparin) 5,000 units SC Q12 [facility] Last Admin: 11/29/16 22:12 Dose: Not Given Ceftriaxone Sodium 1 gm/ (Sodium Chloride) 100 mls @ 100 mls/hr IVPB DAILY [facility] Last Admin: 11/29/16 09:05 Dose: 100 mls/hr Azithromycin 500 mg/ Sodium (Chloride) 250 mls @ 250 mls/hr IVPB DAILY [facility] Last Admin: 11/29/16 10:00 Dose: 250 mls/hr Sodium Chloride (Sodium Chloride 0.45%) 1,000 mls @ 60 mls/hr IV .[id number] [facility] Last Admin: 11/30/16 05:01 Dose: 60 mls/hr Potassium Chloride (Klor-Con 10) 10 meq PO DAILY@0800 [facility] Last Admin: 11/30/16 09:04 Dose: Not Given Fluticasone/Salmeterol (Advair Diskus 250/50) 1 puff INH RQ12 [facility] Last Admin: 11/29/16 19:06 Dose: 1 puff Tiotropium [place] (Spiriva) 18 mcg INH RQ24 [facility] Last Admin: 11/29/16 07:30 Dose: Not Given - Labs Labs: 11/29/16 08:22 11/29/16 08:22 PT 16.5 SECONDS (9.7-12.2) H 11/28/16 06:54 INR 1.5 11/28/16 06:54 APTT 30 SECONDS (21-34) 11/28/16 06:54 - Additional Findings Additional findings: - Constitutional Appears: Non-toxic, No Acute Distress, Cachectic - Head Exam Head Exam: ATRAUMATIC, NORMAL INSPECTION - Respiratory Exam Respiratory Exam: Decreased Breath Sounds, NORMAL BREATHING PATTERN. absent: Accessory Muscle Use, Rales, Respiratory Distress Additional comments: barrel chest - Cardiovascular Exam Cardiovascular Exam: Irregular Rhythm, +S1, +S2 - GI/Abdominal Exam GI & Abdominal Exam: Soft, Normal Bowel Sounds. absent: Distended, Firm, Guarding, Tenderness - Extremities Exam Additional comments: clubbing on fingers - Neurological Exam Neurological Exam: Alert, Awake, Oriented x3 - Psychiatric Exam Psychiatric exam: Normal Affect, Normal Mood - Skin Skin Exam: Dry, Intact, Normal Color, Warm Assessment and Plan - Assessment and Plan (Free Text) Plan: Lung mass Assessment & Plan: Heme/onc consult CT guided biopsy for lung mass - pending patient's compliance COPD (chronic obstructive pulmonary disease) Assessment & Plan: CT - suggesting of extensive emphysema No need for steroids as the patient does not appear to be having an acute exacerbation Advair 250/50 and Spirivia Duonebs Q6 [facility] Azithromycin and Ceftriaxone for pneumonia coverage DW Jessica Gilbert DO, PGY-1 <Ramez Nicolas S - Last Filed: 11/30/16 15:18> Subjective - Date & Time of Evaluation Time of Evaluation: 10:45 Objective - Vital Signs/Intake and Output Vital Signs (last 24 hours): Temp Pulse Resp BP Pulse Ox 98.0 F 78 20 144/81 95 11/30/16 07:15 11/30/16 07:15 11/30/16 07:15 11/30/16 07:15 11/30/16 07:15 Intake and Output: 11/30/16 11/30/16 06:59 18:59 Intake Total 400 Output Total 300 Balance 100 - Medications Medications: Current Medications Albuterol/Ipratropium (Duoneb 3 Mg/0.5 Mg (3 Ml) Ud) 3 ml INH RQ6 [facility] Last Admin: 11/30/16 13:25 Dose: Not Given Heparin Sodium (Porcine) (Heparin) 5,000 units SC Q12 [facility] Last Admin: 11/29/16 22:12 Dose: Not Given Ceftriaxone Sodium 1 gm/ (Sodium Chloride) 100 mls @ 100 mls/hr IVPB DAILY [facility] Last Admin: 11/29/16 09:05 Dose: 100 mls/hr Azithromycin 500 mg/ Sodium (Chloride) 250 mls @ 250 mls/hr IVPB DAILY [facility] Last Admin: 11/29/16 10:00 Dose: 250 mls/hr Sodium Chloride (Sodium Chloride 0.45%) 1,000 mls @ 60 mls/hr IV .[id number] [facility] Last Admin: 11/30/16 05:01 Dose: 60 mls/hr Potassium Chloride (Klor-Con 10) 10 meq PO DAILY@0800 [facility] Last Admin: 11/30/16 09:04 Dose: Not Given Fluticasone/Salmeterol (Advair Diskus 250/50) 1 puff INH RQ12 [facility] Last Admin: 11/30/16 10:08 Dose: 1 puff Tiotropium [place] (Spiriva) 18 mcg INH RQ24 [facility] Last Admin: 11/30/16 10:06 Dose: Not Given - Labs Labs: 11/29/16 08:22 11/29/16 08:22 PT 16.5 SECONDS (9.7-12.2) H 11/28/16 06:54 INR 1.5 11/28/16 06:54 APTT 30 SECONDS (21-34) 11/28/16 06:54 Attending/Attestation - Attestation I have personally seen and examined this patient.: Yes I have fully participated in the care of the patient.: Yes I have reviewed all pertinent clinical information, including history, physical exam and plan: Yes Notes (Text): 11/30/16 15:18 patient seen and examined. Status post lung biopsy Continue nebulizer treatment Continue present care
[2016-11-30] MEDS: Azithromycin 500 MG in Sodium Chloride 0.9% 250 ML IVPB SCH ×2 (10:00→18:46)
[2016-11-30] MEDS: Tiotropium 18 mcg Cap For Inhalation INH SCH (10:06)
[2016-11-30] MEDS: Fluticasone-Salmeterol 250-50mcg Diskus INH SCH ×2 (10:08→19:23)
[2016-11-30] MEDS ORDERED: Midazolam 2 MG/2 ML VIAL ONE (10:50)
--- NOTE | 2016-11-30 11:12 | PCM.SURG1 ---
Surgeon's Initial Post Op Note - Surgeon's Notes Surgeon: Ganesh Santana MD Software Installer: NONE Type of Anesthesia: IV Sedation Pre-Operative Diagnosis: Right lung mass Operative Findings: CT showed large RLL mass Post-Operative Diagnosis: Right lung mass Operation Performed: CT guided core biopsy Specimen/Specimens Removed: 3 x 18 gauge core obtained. Estimated Blood Loss: EBL {In ML}: 0 Blood Products Given: N/A Drains Used: No Drains Post-Op Condition: Fair Date of Surgery/Procedure: 11/30/16 Time of Surgery/Procedure: 11:10
--- NOTE | 2016-11-30 11:57 | CP.PCM.PN ---
Subjective - Date & Time of Evaluation Date of Evaluation: 11/30/16 Time of Evaluation: 11:55 - Subjective Subjective: FEELS BETTER. COUGH PRESENT. AFEBRILE. CT GUIDED CORE LUNG BIOPSY DONE. STANLE. Objective - Vital Signs/Intake and Output Vital Signs (last 24 hours): Temp Pulse Resp BP Pulse Ox 98.0 F 78 20 144/81 95 11/30/16 07:15 11/30/16 07:15 11/30/16 07:15 11/30/16 07:15 11/30/16 07:15 Intake and Output: 11/30/16 11/30/16 06:59 18:59 Intake Total 400 Output Total 300 Balance 100 - Medications Medications: Current Medications Albuterol/Ipratropium (Duoneb 3 Mg/0.5 Mg (3 Ml) Ud) 3 ml INH RQ6 [facility] Last Admin: 11/30/16 07:32 Dose: Not Given Heparin Sodium (Porcine) (Heparin) 5,000 units SC Q12 [facility] Last Admin: 11/29/16 22:12 Dose: Not Given Ceftriaxone Sodium 1 gm/ (Sodium Chloride) 100 mls @ 100 mls/hr IVPB DAILY [facility] Last Admin: 11/29/16 09:05 Dose: 100 mls/hr Azithromycin 500 mg/ Sodium (Chloride) 250 mls @ 250 mls/hr IVPB DAILY [facility] Last Admin: 11/29/16 10:00 Dose: 250 mls/hr Sodium Chloride (Sodium Chloride 0.45%) 1,000 mls @ 60 mls/hr IV .[id number] [facility] Last Admin: 11/30/16 05:01 Dose: 60 mls/hr Potassium Chloride (Klor-Con 10) 10 meq PO DAILY@0800 [facility] Last Admin: 11/30/16 09:04 Dose: Not Given Fluticasone/Salmeterol (Advair Diskus 250/50) 1 puff INH RQ12 [facility] Last Admin: 11/30/16 10:08 Dose: 1 puff Tiotropium [place] (Spiriva) 18 mcg INH RQ24 [facility] Last Admin: 11/30/16 10:06 Dose: Not Given - Labs Labs: 11/29/16 08:22 11/29/16 08:22 PT 16.5 SECONDS (9.7-12.2) H 11/28/16 06:54 INR 1.5 11/28/16 06:54 APTT 30 SECONDS (21-34) 11/28/16 06:54 - Constitutional Appears: No Acute Distress, Chronically Ill - Eye Exam Eye Exam: Normal appearance, PERRL - ENT Exam ENT Exam: Mucous Membranes Moist, Normal Exam - Respiratory Exam Respiratory Exam: Decreased Breath Sounds, Clear to Ausculation Bilateral - Cardiovascular Exam Cardiovascular Exam: REGULAR RHYTHM, +S1, +S2 - GI/Abdominal Exam GI & Abdominal Exam: Soft, Normal Bowel Sounds - Extremities Exam Extremities Exam: Full ROM, Normal Capillary Refill, Normal Inspection. absent : Joint Swelling, Pedal Edema - Back Exam Back Exam: NORMAL INSPECTION - Neurological Exam Neurological Exam: Alert, Awake, CN II-XII Intact, Normal Gait, Oriented x3 - Psychiatric Exam Psychiatric exam: Normal Affect, Normal Mood Assessment and Plan - Assessment and Plan (Free Text) Assessment: STABLE. POST LUNG BIOPSY. LUNG MASS. COPD. Plan: FOR DISCHARGE HOME. F/U IN THE OFFICE 1 WK. F/U DR. MITCHELL 1 WK. Valerie DESAI PO.
--- NOTE | 2016-11-30 16:38 | CP.PCM.PN ---
Subjective - Date & Time of Evaluation Date of Evaluation: 11/30/16 Time of Evaluation: 16:32 - Subjective Subjective: PT HAD CT GUIDED BIOPSY THIS AFTERNOON AND TOLERATED WELL. SEEN BY DR. Zuleyka DUFF AFTER PROCEDURE AND CLEARED FOR D/C IN LATE AFTERNOON IF STABLE. PER IR CXR TO BE DONE AN HOUR AFTER THE BIOPSY---CXR ORDER AND DONE (SEE OFFICIAL REPORT WHEN DICTATED). WAITING FOR OFFICIAL RADIOLOGIST REPORT. PT DOES HAVE SOB BUT STATES HE'S "FINE I JUST WANT TO LEAVE." SENT IMAGE OF CXR TO DRS. Zuleyka DUFF AND DR. JOHNSON. PER DR. JOHNSON IT LOOKS AT THOUGH PT HAS LARGE PLEURAL EFFUSION AND NOT CLEARED FOR D/C. IF PT WANTS TO LEAVE TODAY HE MUST AMA PER DR. JOHNSON AND DR. Zuleyka DUFF. DISCUSSED THIS WITH PT AND RN BALDEMAR. NO FURTHER ORDERS AT THIS TIME;. Objective - Vital Signs/Intake and Output Vital Signs (last 24 hours): Temp Pulse Resp BP Pulse Ox 97.8 F 84 20 146/82 91 L 11/30/16 15:11 11/30/16 15:11 11/30/16 15:11 11/30/16 15:11 11/30/16 15:11 Intake and Output: 11/30/16 11/30/16 06:59 18:59 Intake Total 400 440 Output Total 300 Balance 100 440 - Medications Medications: Current Medications Albuterol/Ipratropium (Duoneb 3 Mg/0.5 Mg (3 Ml) Ud) 3 ml INH RQ6 [facility] Last Admin: 11/30/16 13:25 Dose: Not Given Heparin Sodium (Porcine) (Heparin) 5,000 units SC Q12 [facility] Last Admin: 11/29/16 22:12 Dose: Not Given Ceftriaxone Sodium 1 gm/ (Sodium Chloride) 100 mls @ 100 mls/hr IVPB DAILY [facility] Last Admin: 11/29/16 09:05 Dose: 100 mls/hr Azithromycin 500 mg/ Sodium (Chloride) 250 mls @ 250 mls/hr IVPB DAILY [facility] Last Admin: 11/29/16 10:00 Dose: 250 mls/hr Sodium Chloride (Sodium Chloride 0.45%) 1,000 mls @ 60 mls/hr IV .[id number] [facility] Last Admin: 11/30/16 05:01 Dose: 60 mls/hr Potassium Chloride (Klor-Con 10) 10 meq PO DAILY@0800 [facility] Last Admin: 11/30/16 09:04 Dose: Not Given Fluticasone/Salmeterol (Advair Diskus 250/50) 1 puff INH RQ12 [facility] Last Admin: 11/30/16 10:08 Dose: 1 puff Tiotropium [place] (Spiriva) 18 mcg INH RQ24 [facility] Last Admin: 11/30/16 10:06 Dose: Not Given - Labs Labs: 11/29/16 08:22 11/29/16 08:22 PT 16.5 SECONDS (9.7-12.2) H 11/28/16 06:54 INR 1.5 11/28/16 06:54 APTT 30 SECONDS (21-34) 11/28/16 06:54
--- NOTE | 2016-11-30 17:07 | RAD ---
HISTORY: POST-CT GUIDED LUNG BIOPSY COMPARISON: 11/28/2016 chest x-ray. Angio chest PE study 11/28/2016 TECHNIQUE: Chest PA and lateral FINDINGS: LUNGS: Right inferolateral pleural thickening with or without pleural effusion. Homogeneous low-density in the inferior right hemithorax- the aforementioned CT study mention the right mediastinal mass please note that report Asymmetrical diffuse a prominent right-sided interstitial lung markings. Background interstitial lung disease with a superimposed interstitial pulmonary edema suspect. PLEURA: As above. No apical pneumothorax tiny loculated pneumothorax cannot excluded right lateral mid lung zone. CARDIOVASCULAR: Mild cardiomegaly tortuous thoracic aorta prominent ascending aorta as before. Please note the CT angio report referencing a fastening aortic aneurysm of 4.3 cm OSSEOUS STRUCTURES: No significant abnormalities. VISUALIZED UPPER ABDOMEN: Normal. OTHER FINDINGS: None. IMPRESSION: No interval right apical pneumothorax appreciated Interval right inferolateral pleural effusion and/or thickening. Right inferior hemithoracic low-density opacity -no please no prior CT report referencing mediastinal mass in other findings likely ascending aortic aneurysm Interstitial lung disease greater than left -interstitial pulmonary edema suspect right greater than left
--- NOTE | 2016-11-30 19:38 | CP.PCM.PN ---
Subjective - Date & Time of Evaluation Date of Evaluation: 11/30/16 Time of Evaluation: 09:00 - Subjective Subjective: events noted cultures so far neg not cleared for d/c Objective - Vital Signs/Intake and Output Vital Signs (last 24 hours): Temp Pulse Resp BP Pulse Ox 97.8 F 84 20 146/82 91 L 11/30/16 15:11 11/30/16 16:00 11/30/16 15:11 11/30/16 15:11 11/30/16 15:11 Intake and Output: 11/30/16 12/01/16 18:59 06:59 Intake Total 440 Balance 440 - Medications Medications: Current Medications Albuterol/Ipratropium (Duoneb 3 Mg/0.5 Mg (3 Ml) Ud) 3 ml INH RQ6 [facility] Last Admin: 11/30/16 19:23 Dose: 3 ml Heparin Sodium (Porcine) (Heparin) 5,000 units SC Q12 [facility] Last Admin: 11/30/16 10:00 Dose: Not Given Ceftriaxone Sodium 1 gm/ (Sodium Chloride) 100 mls @ 100 mls/hr IVPB DAILY [facility] Last Admin: 11/30/16 18:46 Dose: 100 mls/hr Azithromycin 500 mg/ Sodium (Chloride) 250 mls @ 250 mls/hr IVPB DAILY [facility] Last Admin: 11/30/16 18:46 Dose: 250 mls/hr Sodium Chloride (Sodium Chloride 0.45%) 1,000 mls @ 60 mls/hr IV .[id number] [facility] Last Admin: 11/30/16 05:01 Dose: 60 mls/hr Potassium Chloride (Klor-Con 10) 10 meq PO DAILY@0800 [facility] Last Admin: 11/30/16 09:04 Dose: Not Given Fluticasone/Salmeterol (Advair Diskus 250/50) 1 puff INH RQ12 [facility] Last Admin: 11/30/16 19:23 Dose: 1 puff Tiotropium [place] (Spiriva) 18 mcg INH RQ24 [facility] Last Admin: 11/30/16 10:06 Dose: Not Given - Labs Labs: 11/29/16 08:22 11/29/16 08:22 PT 16.5 SECONDS (9.7-12.2) H 11/28/16 06:54 INR 1.5 11/28/16 06:54 APTT 30 SECONDS (21-34) 11/28/16 06:54 Assessment and Plan (1) COPD (chronic obstructive pulmonary disease) Status: Acute (2) Lung mass Status: Acute (3) Tachycardia Status: Acute
[2016-12-01] MEDS: Albuterol-Ipratrop 3 mg / 0.5 (3 ml) UD INH SCH ×2 (01:09→07:41)
[2016-12-01 08:14] VITALS: BP 146/83; RESP 18; TEMP 97.5; O2SAT 97
[2016-12-01] MEDS: Potassium Chloride 10 mEq ER Tab PO SCH (08:30)
[2016-12-01] MEDS: Sodium Chloride 0.45% 1,000 ML IV SCH (09:13)
[2016-12-01] MEDS: Tiotropium 18 mcg Cap For Inhalation INH SCH (09:39)
[2016-12-01] MEDS: Fluticasone-Salmeterol 250-50mcg Diskus INH SCH (09:40)
[2016-12-01 12:31] VITALS: PULSE 79
--- NOTE | 2016-12-01 12:56 | RAD ---
HISTORY: COMPARISON; SOB COMPARISON: Comparison chest 11/30/2016 comparison also made with CTA chest 11/28/2016. TECHNIQUE: Chest PA and lateral FINDINGS: LUNGS: Extensive centrilobular emphysematous changes upper lobe predominance. Re- demonstrated is apparent mass lesion in the right lower lobe with interval increase size right-sided effusion. Additionally, there appears to be interval development of progressive atelectasis in the right mid lung field possibly postobstructive. Minor left basilar atelectasis PLEURA: As above. No pneumothorax apparent. CARDIOVASCULAR: Normal. OSSEOUS STRUCTURES: Multilevel degenerative spondylosis of the thoracic spine. VISUALIZED UPPER ABDOMEN: Normal. OTHER FINDINGS: None. IMPRESSION: Re- demonstrated is apparent mass lesion in the right lower lobe with interval increase size right-sided effusion. Additionally, there appears to be interval development of progressive atelectasis in the right mid lung field possibly postobstructive. Minor left basilar atelectasis. Extensive on centrilobular emphysematous changes upper lobe predominance
--- NOTE | 2016-12-01 14:11 | CP.PCM.PN ---
Subjective - Date & Time of Evaluation Date of Evaluation: 12/01/16 Time of Evaluation: 09:00 - Subjective Subjective: Pulmonology Note for Dr. Nicolas's Service Patient was seen and examined at bedside. He reports he feels well. No acute complaints. S/P RLL biopsy. Patient has no pain at biopsy site. Patient is tachcapnic - refuses to believe anything is wrong with him. States he will be leaving today, even if he has to sign himself out AMA. Denied fever, chills, headache, chest pain, SOB, cough abdominal pain, n/v/d/c, or urinary symptoms. Objective - Vital Signs/Intake and Output Vital Signs (last 24 hours): Temp Pulse Resp BP Pulse Ox 97.5 F L 79 18 146/83 97 12/01/16 07:15 12/01/16 08:00 12/01/16 07:15 12/01/16 07:15 12/01/16 07:15 Intake and Output: 12/01/16 12/01/16 06:59 18:59 Intake Total 750 600 Output Total 400 Balance 350 600 - Labs Labs: 11/29/16 08:22 11/29/16 08:22 PT 16.5 SECONDS (9.7-12.2) H 11/28/16 06:54 INR 1.5 11/28/16 06:54 APTT 30 SECONDS (21-34) 11/28/16 06:54 - Additional Findings Additional findings: - Constitutional Appears: Non-toxic, No Acute Distress, Cachectic - Head Exam Head Exam: ATRAUMATIC, NORMAL INSPECTION - Respiratory Exam Respiratory Exam: Decreased Breath Sounds, NORMAL BREATHING PATTERN. absent: Accessory Muscle Use, Rales, Respiratory Distress Additional comments: barrel chest - Cardiovascular Exam Cardiovascular Exam: Irregular Rhythm, +S1, +S2 - GI/Abdominal Exam GI & Abdominal Exam: Soft, Normal Bowel Sounds. absent: Distended, Firm, Guarding, Tenderness - Extremities Exam Additional comments: clubbing on fingers - Neurological Exam Neurological Exam: Alert, Awake, Oriented x3 - Psychiatric Exam Psychiatric exam: Normal Affect, Normal Mood - Skin Skin Exam: Dry, Intact, Normal Color, Warm Assessment and Plan - Assessment and Plan (Free Text) Plan: Lung mass Assessment & Plan: Heme/onc consult S/P CT guided biopsy for lung mass - patient will need to follow up as outpatient for results COPD (chronic obstructive pulmonary disease) Assessment & Plan: CT - suggesting of extensive emphysema No need for steroids as the patient does not appear to be having an acute exacerbation Advair 250/50 and Spirivia Duonebs Q6 [facility] Azithromycin and Ceftriaxone for pneumonia coverage Patient signed out AMA. Jessica Diaz Dr., DO, PGY-1
--- NOTE | 2016-12-05 12:37 | CT ---
PROCEDURE: Date of procedure: 11/30/2016 Procedure: 1. CT-guided lung mass biopsy, CPT [address] Guidance for biopsy, [address] Medications: The patient was sedated by anesthesiologist along with physiologic monitoring. HISTORY: Right lower lung mass TECHNIQUE: Following informed consent, the Pt's chest was marked. The Pt was placed prone on the CT table and procedure time out was performed. A noncontrast CT scan was performed. Noncontrast CT scan confirmed the presence of a large right lower lobe mass. A skin localizer was placed on the patient's right back and a repeat CT scan was performed. The skin was marked, prepped, and draped in the usual sterile fashion. After the skin was anesthetized with lidocaine and the patient sedated by the anesthesiologist, an 18 gauge core needle was advanced percutaneously under direct CT guidance into the mass. Upon confirmation of needle position, three 18-gauge core specimens were obtained and sent for routine pathology. The needle was removed and a xeroform dressing was applied. A post biopsy CT scan showed no pneumothorax. IMPRESSION: CT guided core biopsy right lung mass.
[2016-12-08] MEDS ORDERED: Albuterol-Ipratrop 3 mg / 0.5 (3 ml) UD INH SCH (14:00)
[2016-12-08] MEDS ORDERED: Fluticasone-Salmeterol 250-50mcg Diskus INH SCH (20:00)
[2016-12-09] MEDS ORDERED: Tiotropium 18 mcg Cap For Inhalation INH SCH (08:00)
--- NOTE | 2016-12-18 14:43 | DS ---
HISTORY OF PRESENT ILLNESS: This is a 66-year-old white man, came to the emergency room with history of increasing shortness of breath and cough. The patient was found to be in atrial fibrillation. The patient has right lower lobe tumor. No history of hypertension, diabetes or myocardial infraction. The patient is not on any medication. The patient was a heavy smoker. PHYSICAL EXAMINATION: During the hospital course on admission: VITAL SIGNS: Within normal limits, pulse was 166 per minute in atrial fibrillation, respiration 22, blood pressure 95/70 mmHg, pulse ox is 99% on air. HEENT: Normal. JVP is flat. Carotids, no bruits. LUNGS: Has poor air entry and wheezing. HEART: Tachycardic. No gallop, no murmur. ABDOMEN: Soft and nontender. No organomegaly. CENTRAL NERVOUS SYSTEM: No focal neurological deficits. LABORATORY DATA: On admission, chest x-ray showed right lower lobe infiltrate and large mass. The patient was admitted to the floor. The patient had CT-guided biopsy of the lungs done. The patient was uncooperative and agitating. The patient signed-out against medical advise. FINAL DIAGNOSES: Right lower lobe lung mass, chronic obstruction pulmonary disease with acute exacerbation. Mauricio Austin MD
== END 2016-12-01 12:20 | disposition left against medical advice (07) | DRG 166 ==
LOC: C.ER 06:10 → C.9E 12:00 → C.6T 14:33
PROVIDERS: ADMIT Internal Medicine; ATTEND Internal Medicine
PROC: 0BBK8ZX Excision of Right Lung, Via Natural or Artificial Opening Endoscopic, Diagnostic (ICD-10-PCS; principal; 2016-11-30)
DX: J44.0 Chronic obstructive pulmonary disease with (acute) lower respiratory infection (principal); J18.9 Pneumonia, unspecified organism; I48.91 Unspecified atrial fibrillation; D64.9 Anemia, unspecified; F17.210 Nicotine dependence, cigarettes, uncomplicated; R63.4 Abnormal weight loss; R00.0 Tachycardia, unspecified; R91.8 Other nonspecific abnormal finding of lung field